=== PATIENT | female | born 1935 | race Caucasian/White ===

== ENCOUNTER 2017-01-09 09:32 | Inpatient (IN) | payer MEDICARE, OTHER ==
[2017-01-04 15:37] LABS: BASOPHILS 0.8 %; BASOPHILS ABSOLUTE 0.05 10/3/uL (0.0-0.16); EOSINOPHILS ABSOLUTE 0.24 10/3/uL (0.0-0.53); HEMATOCRIT 36.9 % (36.0-48.0); HEMOGLOBIN 12.3 g/dL (12.0-16.0); IMMATURE GRANULOCYTES 0.2 %; IMMATURE GRANULOCYTES ABSOLUTE 0.01 10/3/uL (0.0-0.11); LYMPHOCYTES 34.7 %; LYMPHOCYTES ABSOLUTE 2.09 10/3/uL (0.67-4.30); MEAN CORPUS HGB CONC 33.3 g/dL (32.0-36.0); MEAN CORPUSCULAR HEMOGLOB 32.6 pg (26.0-34.0); MEAN CORPUSCULAR VOLUME 97.9 fL (80-100); MEAN PLATELET VOLUME 9.6 fL (9.2-13.0); MONOCYTES 7.6 %; MONOCYTES ABSOLUTE 0.46 10/3/uL (0.21-1.20); NEUTROPHILS 52.7 %; NEUTROPHILS ABSOLUTE 3.18 10/3/uL (2.02-8.40); PLATELET COUNT 287 10/3/uL (150-400); RBC DISTRIBUTION WIDTH 12.5 % (12.0-16.0); RED CELL COUNT 3.77 10/6/uL (4.0-5.6)
[2017-01-04 15:38] LABS: MANUAL DIFF NO %
[2017-01-04 15:45] LABS: PARTIAL THROMBO TIME 26.9 SEC (22.5-37.2)
[2017-01-04 15:46] LABS: PROTIME (NOT ORD) 13.4 SEC (12.0-14.5)
[2017-01-04 15:50] LABS: ALBUMIN 3.9 G/DL (3.5-5.0); ALKALINE PHOSPHATASE 94 U/L (45-117); BUN (BLOOD UREA NITROGEN) 16 MG/DL (6-23); CALCIUM, SERUM 9.4 MG/DL (8.5-10.4); CHLORIDE, SERUM 101 MMOL/L (96-112); CO2 (CARBON DIOXIDE) 30 MMOL/L (24-34); CREATININE 0.77 MG/DL (0.55-1.02); GFR AFRICAN AMERICAN 84 ML/MIN (>=60); GFR NON AFRICAN AMERICAN 72 ML/MIN (>=60); GLUCOSE, SERUM 91 MG/DL (60-99); POTASSIUM, SERUM 3.6 MMOL/L (3.5-5.3); SGOT(AST) 23 U/L (5-40); SGPT(ALT) 24 U/L (5-65); SODIUM, SERUM 135 MMOL/L (135-148); TOTAL BILIRUBIN 0.3 MG/DL (0-1.2); TOTAL PROTEIN 7.9 G/DL (6.0-8.5)
[2017-01-04 15:56] LABS: ASCORBIC ACID (UR NOT ORDER) NEG (NEG); BILIRUBIN, URINE NEGATIVE (NEG); KETONE, URINE NEGATIVE (NEG); LEUKOCYTE ESTERASE(NOT OR MOD (NEG); WBC (NOT ORDERED) (RFLEX) 3 (0-5)
--- NOTE | ~2017-01-09 | OP ---
Record Of Operation [facility] [address] [place]. [address] NAME: ROCKY PARADA : 35 STATUS : ADM IN PAT#: [id number] AGE: 81 ADM/REG DATE : 01/09/17 MR#: [id number] REPORT SERV DATE: 01/09/17 DICTATED BY: OSCAR GOETZ DATE: 01/09/17 REPORT STATUS : Draft TRANSCRIBED BY: MODL DATE: 01/09/17 DATE OF PROCEDURE: 01/09/2017 PREOPERATIVE DIAGNOSIS: Severe osteoarthritis of the right hip. POSTOPERATIVE DIAGNOSIS: Severe osteoarthritis of the right hip. PROCEDURE: Right total hip arthroplasty. SURGEON: Oscar Goetz M.D. CANDLES POURER: Shailesh Kennedy. ANESTHESIA: General endotracheal. ESTIMATED BLOOD LOSS: 300 mL. COMPLICATIONS: None. DRAINS: ConstaVac x1. IMPLANTS: DePuy [place] 52 mm outer diameter cup with a 36 mm inner diameter, +4 lateralized polyethylene liner. The femoral component was size 5 high offset Mcdowell stem with a 36 mm, +1.5 head and neck segment. INDICATIONS FOR SURGERY: Ms. Parada is an 81-year-old female with severe osteoarthritis of her right hip. She has had unremitting pain, which has been refractory to medical management. She presents requesting the above-mentioned procedure. Risks of the procedure as detailed in the history and physical, and operative consent were discussed prior to proceeding. She fully understood and has requested to proceed. PROCEDURE: The patient was brought to the operating room and after adequate induction of anesthesia, was positioned in the lateral decubitus position using the hip nc machinist positioners. All appropriate pressure points were padded and axillary roll was placed. The appropriate operative site was identified and confirmed by both the surgeon and the operating room staff in time out. The hip was then prepped and draped in the usual sterile fashion. A posterior lateral approach to the hip was performed. The skin and subcutaneous tissues were incised sharply using a #10 blade. Electrocautery was used as needed to maintain hemostasis. The fascia omer and fascia over the gluteus franco were divided in line with the incision. The fibers of the gluteus franco were split bluntly. The sciatic nerve was identified and carefully protected throughout the remainder of the case. The Charnley retractor was then placed. The hip was placed in internal rotation and the superior border of the piriformis tendon identified. A full thickness capsulotomy was begun at the superior border of the piriformis tendon and extended anteriorly/inferiorly using an Record Of Operation [facility] [address] [place]. [address] NAME: ROCKY PARADA : 35 STATUS : ADM IN PAT#: [id number] AGE: 81 ADM/REG DATE : 01/09/17 MR#: [id number] REPORT SERV DATE: 01/09/17 DICTATED BY: OSCAR GOETZ DATE: 01/09/17 REPORT STATUS : Draft TRANSCRIBED BY: SAMUEL DATE: 01/09/17 inside/out technique. A portion of the short external rotators were taken down in the capsular exposure. Leg length measurements were then taken. The hip was then dislocated posteriorly. The femoral neck was then marked and resected at the predetermined level from templating using an oscillating saw. Attention was then turned to the femur and the medial aspect of the greater trochanter was debrided of all cortical bone and soft tissue. The intramedullary canal was opened with a triple reamer. The femur was then sequentially reamed to the appropriate size Mcdowell stem. The femur was then sequentially broached, once again to the appropriately sized implant. The femoral neck resection was slightly revised using a calcar mill to bring it to the level of the femoral broach. The broach was then removed. Attention was then turned to the acetabulum and the acetabulum was debrided of all labral remnants, osteophytes, and the medial fibrofatty tissue was debrided and the true medial wall of the acetabulum identified. The acetabulum was then sequentially reamed from a size 43 mm hemispherical reamer to a reamer 1 mm smaller than the final component. At this level there was circumferential bleeding of subchondral bony surface. Any subchondral cysts were curetted. The true acetabular cup was then impacted into the acetabulum and a trial liner placed. A trial reduction was then performed. The leg lengths were felt to be equal. The hip was stable at its limited extension and external rotation and to 90 degrees of flexion and 80 degrees of internal rotation. The hip was also stable in the position of sleep. At this point all trial components were removed and the acetabular hole grocery worker placed in the acetabular shell. The true acetabular liner was then impacted in the clean acetabular shell. The femoral canal was then copiously irrigated with normal saline and suctioned dry. The true femoral stem was then impacted into the femur to an identical depth and identical anteversion of the trial component. A trial reduction was once again performed to assure that there was no change in leg length or stability. The true femoral head ball was then impacted into the clean femoral taper. The acetabulum was inspected to be sure it was free of all foreign matter and the hip reduced. The wound was copiously irrigated with pulsatile lavage and normal saline. The capsule was repaired using interrupted #1 Vicryl suture in [id number]-[id number] fashion. The short external rotators were repaired using #5 Ethibond in horizontal mattress fashion. Drain placed deep to the fascia. The fascia was closed with interrupted #5 Ethibond sutures in [id number] fashion. The subcutaneous tissues approximated with interrupted 2-0 Vicryl suture and the skin stapled. Sterile dressing applied. The patient awakened and taken to the recovery room in stable condition. POSTOP PLAN: The patient is to be mobilized weightbearing as tolerated with physical therapy. Posterior hip dislocation precautions. The patient is to be on Coumadin and mechanical deep venous thrombosis prophylaxis. Record Of Operation [facility] [address] [place]. [address] NAME: ROCKY PARADA : 35 STATUS : ADM IN [facility]#: [id number] AGE: 81 ADM/REG DATE : 01/09/17 MR#: [id number] REPORT SERV DATE: 01/09/17 DICTATED BY: OSCAR GOETZ DATE: 01/09/17 REPORT STATUS : Draft TRANSCRIBED BY: SAMUEL DATE: 01/09/17 CORDELIA/SAMUEL Oscar Goetz M.D. / [id number] CC: Oscar Gotez M.D.
--- NOTE | ~2017-01-09 | DS ---
Discharge Summary [facility] [address] [place]. [address] NAME: ROCKY VARGAS : 35 STATUS : DIS IN PAT#: [id number] AGE: 82 ADM/REG DATE : 01/09/17 MR#: [id number] REPORT SERV DATE: 01/26/17 DICTATED BY: OSCAR GOETZ DATE: 01/25/17 REPORT STATUS : Draft TRANSCRIBED BY: SAMUEL DATE: 01/25/17 Data Collection from hospitalization DISCHARGE DIAGNOSIS(ES): 1. Severe osteoarthritis of the right hip. 2. Hyperthyroidism. 3. Glaucoma. CONSULTATIONS: None. PROCEDURES PERFORMED: Right total hip arthroplasty, 01/09/2017. PATHOLOGY: Bone and soft tissue, right femoral head arthroplasty-degenerative joint disease with eburnation, no infection or neoplasm. MEDICATIONS: Tylenol 325 mg every four hours as needed, Docusoft 100 mg daily as needed, [place] 5/325 one to two tablets every four hours as needed, Xalatan one drop at bedtime, Synthroid 75 mcg every morning, and Coumadin as instructed. CONDITION AT DISCHARGE: Stable. DISPOSITION: The patient was discharged home to be followed by Home Health Care on a regular diet with activities as instructed. She would follow up with me, 02/05/2017. HOSPITAL COURSE: This is an 81-year-old female who has severe osteoarthritis of the right hip. Treatment options were discussed, and it was elected to proceed with surgical intervention. She was admitted to the hospital at this time for further evaluation and treatment. Upon admission, she was taken to the operating room where she underwent the above-mentioned procedure. She tolerated this well. There were no complications. On postop day 1, RAMIN hose were in place. She was up sitting in a bedside chair. Synthroid was continued. Xalatan was being given. She was evaluated by Occupational and Physical Therapy. Over the next couple of days, she continued to progress. She remained medically stable. Discharge planning was performed. On 01/12/2017, she had no edema. She had normal distal pulses. Discharge instructions were given. Due to her improved and stable condition, she was discharged home to be followed by home health care with the above-stated instructions. Information collected by: Cristina Handy I submit the above information as my discharge summary. TALYA/SAMUEL Oscar Goetz M.D. / [id number] Discharge Summary [facility] [address] [place]. [address] NAME: ROCKY VARGAS : 35 STATUS : DIS IN PAT#: [id number] AGE: 82 ADM/REG DATE : 01/09/17 MR#: [id number] REPORT SERV DATE: 01/26/17 DICTATED BY: OSCAR GOETZ DATE: 01/25/17 REPORT STATUS : Draft TRANSCRIBED BY: [place] DATE: 01/25/17 CC: Matteo Kaur M.D.
[~2017-01-09 09:32] MED LIST: DOCUSOFT S100 MG PO; GLUCCHONDR PO; HERB PO; OTC STOOL SOFTENER PO; SYN075 PO; T PO; XALAT OPH; [UNRECOGNIZED DRUG - OTHER] PO
[2017-01-10 04:48] LABS: HEMOGLOBIN 10.9 g/dL (12.0-16.0); INTERNATIONAL NORMAL RATI 1.1 UNITS (-); PROTIME (NOT ORD) 14.4 SEC (12.0-14.5)
[2017-01-10 04:50] LABS: HEMATOCRIT 31.8 % (36.0-48.0)
[2017-01-10 04:54] LABS: CHLORIDE, SERUM 102 MMOL/L (96-112); CO2 (CARBON DIOXIDE) 27 MMOL/L (24-34); CREATININE 0.59 MG/DL (0.55-1.02); GFR AFRICAN AMERICAN 100 ML/MIN (>=60); GFR NON AFRICAN AMERICAN 86 ML/MIN (>=60); POTASSIUM, SERUM 4.1 MMOL/L (3.5-5.3); SODIUM, SERUM 134 MMOL/L (135-148)
[2017-01-10 04:56] LABS: BUN (BLOOD UREA NITROGEN) 11 MG/DL (6-23); CALCIUM, SERUM 8.2 MG/DL (8.5-10.4); GLUCOSE, SERUM 146 MG/DL (60-99)
[2017-01-11 05:42] LABS: HEMATOCRIT 31.5 % (36.0-48.0); HEMOGLOBIN 10.8 g/dL (12.0-16.0)
[2017-01-11 05:45] LABS: INTERNATIONAL NORMAL RATI 2.6 UNITS (-)
[2017-01-11 05:47] LABS: PROTIME (NOT ORD) 27.2 SEC (12.0-14.5)
[2017-01-12 06:28] LABS: HEMATOCRIT 31.8 % (36.0-48.0)
[2017-01-12 06:29] LABS: INTERNATIONAL NORMAL RATI 2.6 UNITS (-)
[2017-01-12] MEDS ORDERED: C2 (09:22)
[2017-01-12] MEDS ORDERED: NORCO1 TA1 PO (09:22)
== END 2017-01-12 13:33 | disposition home health service (06) | DRG 470 ==
LOC: SDC/OF 09:32 → PACU 14:51 → 3SO 16:30
PROVIDERS: Specialist
PROC: 0SR902Z Replacement of Right Hip Joint with Metal on Polyethylene Synthetic Substitute, Open Approach (ICD-10-PCS; principal; 2017-01-09 12:30)
DX: M16.11 Unilateral primary osteoarthritis, right hip (principal); E03.9 Hypothyroidism, unspecified; H40.9 Unspecified glaucoma
CPT/HCPCS: 36415; 71020; 72170; 80048; 80053; 81001; 85014; 85018; 85025; 85610; 85730; 86850; 86900; 86901; 87086; 87641; 88304; 88311; 93005; 97110-GP; 97116-GP; 97161-GP; 97165-GO; 97535-GO; A9270-GY; C1776; G8978-CK-GP; G8979-CH-GP; G8987-CK-GO; G8988-CJ-GO; J0690; J2270; J2405; J2710; J3010; J3370